=== PATIENT | male | born 1965 | race Caucasian/White ===

== ENCOUNTER → 2021-03-05 07:13 | Outpatient (CLI) | payer OTHER, SELFPAY ==
[2021-03-05 14:03] LABS: Influenza Control Positive
[2021-03-05 21:06] LABS: SARS-CoV-2 RNA PCR Positive
== END ==
PROVIDERS: PCP Family Medicine; Visit Provider Physician Assistant
DX: U07.1 COVID-19 (principal)
CPT/HCPCS: 87804; C9803; U0003; U0005

== ENCOUNTER 2021-06-03 09:31 | Outpatient (CLI) | payer OTHER, SELFPAY ==
--- NOTE | ~2021-06-03 | MR_ITS ---
EXAMINATION: MR brain/brain stem wo con DATE: 06/03/2021 10:02 INDICATION: Other amnesia. TECHNIQUE: Magnetic resonance imaging (MRI) of the brain and brainstem was performed without intraven ous contrast. Sequences included sagittal and axial T1-weighted FSE, axial diffusion-weighted FS EPI, axial T2*-weighted GRE, axial T2-weighted FLAIR Propeller, and axial T2-weighted Propeller. Apparent diffusion coefficient (ADC) maps were created. COMPARISON: Head CT 09/01/2018 FINDINGS: There is no intracranial hemorrhage, acute infarction, or abnormal intracranial mass lesion . The ventricles are normal in size. There is an old blowout fracture of medial wall of left orbit. T here is a trace left mastoid effusion. IMPRESSION: 1. Normal brain. Reviewed, dictated and finalized at [facility]. IMPRESSION: 1. Normal brain.
== END 2021-06-03 09:32 ==
PROVIDERS: PCP Family Medicine; Visit Provider Family Medicine
DX: R41.3 Other amnesia (principal); Z82.0 Family history of epilepsy and other diseases of the nervous system
CPT/HCPCS: 70551

== ENCOUNTER 2021-06-30 10:41 | Outpatient (CLI) | payer OTHER, SELFPAY ==
--- NOTE | 2021-07-01 09:47 | WPDNEUROLOGY ---
Neurology EEG Report General Information Date of Study: 06/30/21 TEST eeg DIAGNOSIS Amnesia CONDITION OF RECORDING awake drowsy and sleep EEG NUMBER [id number] CLINICAL HISTORY patient reports trouble remembering things. Has noticed it for a while and seems to be progressing EEG DESCRIPTION basic resting occipital frequency consists of large amount of well-organized low to medium voltage 9 to 11 hertz per 2nd alpha admixed with low-voltage 15 to 18 hertz per 2nd beta. During drowsiness low-voltage beta activity seen diffusely admixed with waxing and waning alpha rhythm posteriorly. Bilateral symmetrical sleep activity seen during sleep hyperventilation not done. Photic stimulation produced normal drive. Non paroxysmal. Nonfocal. Nonlateralizing. IMPRESSION Normal record
== END 2021-06-30 10:42 | disposition home or self-care (01) ==
LOC: ANHNEURO 10:43
PROVIDERS: PCP Family Medicine; Visit Provider Psychiatry & Neurology Neurology
DX: R41.3 Other amnesia (principal)
CPT/HCPCS: 95816

== ENCOUNTER 2021-07-30 07:07 | Emergency (ER) | payer OTHER, SELFPAY ==
[2021-07-30 07:09] VITALS: BP 138/76; PULSE 64; RESP 16; TEMP 36.4; O2SAT 99
[2021-07-30 07:26] VITALS: RESP 18; O2SAT 99
[2021-07-30] MEDS: HYDROcodone/acetaminophen (*CRX) 5-325 MG TABLET 1 TAB PO (07:54)
--- NOTE | 2021-07-30 08:17 | ED.GENADULT ---
HPI - General Adult General Chief complaint: Skin/Abscess/Foreign Body Stated complaint: abcess on buttocks Time Seen by Provider: 07/30/21 07:18 Source: patient Mode of arrival: ambulatory Limitations: no limitations History of Present Illness HPI narrative: 55-year-old with a history of hypertension here with complaints of bleeding per rectum for past few days. Patient states that he sees a small knot. No history of fever or chills or trauma Onset (ago): day(s) Severity scale (1-10): 7 Quality: aching Pain Consistency: constant Relieving factors: none Exacerbating factors: none Associated symptoms: denies other symptoms Related Data Allergies Allergy/AdvReac Type Severity Reaction Status Date / Time No Known Allergies Allergy Mild Verified 06/18/21 15:32 Review of Systems Review of Systems: All systems reviewed & are unremarkable except as noted in HPI and below Constitutional: Constitutional: Reports no additional constitutional complaints Eyes: Eyes: Reports no additional eye complaints ENT: Reports system reviewed and no additional complaints, except as documented Cardiovascular: Cardiovascular: Reports no additional cardiovascular complaints Respiratory: Respiratory: Reports no additional respiratory complaints Gastrointestinal: Gastrointestinal: Reports as per HPI Musculoskeletal: Musculoskeletal: Reports no additional musculoskeletal complaints Integumentary/Breasts: Skin/Breast: Reports system reviewed and no additional complaints, except as docu Neurologic: Reports system reviewed and no additional complaints, except as documented PMFSH Past Medical History Medical History HTN (hypertension) IFG (impaired fasting glucose) Obesity Family History Family History Father Hypertension Alzheimer disease Sibling Hypertension Social History Social History Social History: Smoking status: Never smoker Second hand tobacco smoke exposure: No Alcohol intake: current Drinks per week: 2 Substance use: current Substance use type: marijuana Gender identity (if verbalized by the patient): Male Sexual Orientation (if Verbalized by the Patient): Straight or Heterosexual Exam Narrative: GENERAL: Well-appearing, well-nourished, and in no acute distress. HEAD: Normocephalic, atraumatic. EYES: PERRLA and EOMI. NECK: Supple. CHEST: Clear to auscultation. No respiratory distress. HEART: Regular rate and rhythm. No murmur heard. Normal peripheral pulses. ABDOMEN: Soft, nontender, nondistended, normal active bowel sounds Rectal thrombosed hemorrhoid at 5 o'clock position no sign of infection EXTREMITIES: Normal range of motion. No edema. SKIN: Warm, dry, no rash. NEURO: No focal deficits. Alert and oriented x3. PSYCH: Normal mood and affect. Course Course Emergency Course: Inform patient about his clinical findings. Patient agreed for clot evacuation. Vital Signs Vital signs: Vital Signs Temperature 36.4 C 07/30/21 07:09 Pulse Rate 64 07/30/21 07:09 Respiratory Rate 16 07/30/21 07:09 Blood Pressure 138/76 07/30/21 07:09 Pulse Oximetry 99 07/30/21 07:09 Oxygen Delivery Room Air 07/30/21 07:09 Temperature 36.4 C 07/30/21 07:09 Pulse Rate 64 07/30/21 07:09 Respiratory Rate 18 07/30/21 07:26 Blood Pressure 138/76 07/30/21 07:09 Pulse Oximetry 99 07/30/21 07:26 Oxygen Delivery Room Air 07/30/21 07:26 Procedures Abscess I/D karla-rectal: Date of Incision: 07/30/21 Time of Incision: 08:24 Local Anesthetic: lidocaine 1% Amount of anesthesia used (mL): 3 Technique: incised with #11 blade Irrigation: No Packing used?: none I&D Results: Other (blood clots) Complications: pain Medical Decision Making Differential
== END 2021-07-30 08:39 | disposition home or self-care (01) ==
PROVIDERS: Emergency Provider Family Medicine; PCP Family Medicine
DX: K64.5 Perianal venous thrombosis (principal); I10 Essential (primary) hypertension
CPT/HCPCS: 46320; 99283; A9270

== ENCOUNTER 2022-11-26 14:15 | Outpatient (CLI) | payer OTHER, SELFPAY ==
--- NOTE | ~2022-11-26 | XR_ITS ---
XR abdomen/kub 1V DATE: 11/26/2022 14:28 INDICATION: Constipation TECHNIQUE: 2 supine AP views of the abdomen and pelvis COMPARISON: None FINDINGS: There is a prominent amount of fecal material in the cecum and ascending colon. No bowel ob struction is detected. The psoas shadows are intact. No visceromegaly is evident. No significant abnormal calcification is noted. Mild to moderate degenerative disc disease of the lumbar spine. IMPRESSION: Prominent amount of fecal material in the ascending colon; no bowel obstruction Reviewed, dictated and finalized at [facility]. Reviewed, dictated and finalized at location [facility].
== END 2022-11-26 14:16 | disposition home or self-care (01) ==
LOC: ANHIMG 14:17
PROVIDERS: PCP Family Medicine; Visit Provider Family Medicine
DX: K59.00 Constipation, unspecified (principal)
CPT/HCPCS: 74018